=== PATIENT | male | born 1985 | race Caucasian/White ===

== ENCOUNTER 2021-07-25 07:46 | Emergency (ER) | payer OTHER ==
[2021-07-25] MEDS ORDERED: Benzonatate 100 MG Cap PO ONE (07:47)
[2021-07-25] MEDS ORDERED: Doxycycline Monohydrate 100 MG Cap PO ONE (07:47)
[2021-07-25] MEDS: Benzonatate 100 MG Cap PO ONE (08:47)
[2021-07-25] MEDS ORDERED: Doxycycline Monohydrate 100 MG Cap ONE (09:02)
[2021-07-25] MEDS ORDERED: Benzonatate 100 MG Cap ONE ×2 (09:02→09:05)
== END 2021-07-25 09:14 | disposition home or self-care (01) ==
LOC: DL.ED 07:46
DX: J15.7 Pneumonia due to Mycoplasma pneumoniae (principal); Z91.048 Other nonmedicinal substance allergy status; Z20.822 Contact with and (suspected) exposure to COVID-19
CPT/HCPCS: 87635; 99283; A9270; 99282; U0002